=== PATIENT | male | born 1975 | race Caucasian/White ===

== ENCOUNTER 2017-01-12 12:40 | Emergency (ER) | payer BC ==
[~2017-01-12] VITALS: Ht 180.3 cm; Wt 111.4 kg
[2017-01-12 12:48] VITALS: BP 131/94; TEMP 99.1
[2017-01-12 14:48] VITALS: PULSE 86
== END 2017-01-12 14:48 | disposition home or self-care (01) ==
LOC: COL.ER 12:40
DX: S61.211A Laceration without foreign body of left index finger without damage to nail, initial encounter (principal); Z23 Encounter for immunization; W26.0XXA Contact with knife, initial encounter; Y92.009 Unspecified place in unspecified non-institutional (private) residence as the place of occurrence of the external cause